=== PATIENT | female | born 1990 | race Two or more races ===

== ENCOUNTER 2024-07-12 00:52 | Inpatient (IN) | payer BC, OTHER ==
[2024-07-12] MEDS: ELECTROLYTE-148 SOLN 1,000 ML IV SCH (01:45)
[2024-07-12 02:32] LABS: BASO % 0.5 % (0-2.0); EOS % 0.3 % (0-4.5); HEMATOCRIT 37.1 % (32.4-45.2); HEMOGLOBIN 12.4 GM/dL (10.7-15.3); MCH 28.1 pg (25.7-33.7); MCHC 33.4 g/dl (32.0-36.0); MEAN CELL VOLUME 84.2 fl (80-96); MONO % 5.5 % (3.8-10.2); NEUT % 72.7 % (42.8-82.8); PLATELET COUNT 177 10^3/uL (134-434); RDW 14.4 % (11.6-15.6); WHITE BLOOD COUNT 7.6 K/mm3 (4.0-10.0)
[2024-07-12 02:34] LABS: INR 0.98 (0.83-1.09); PROTHROMBIN TIME (PATIENT) 11.1 SEC (9.7-13.0)
[2024-07-12 02:49] LABS: POTASSIUM 4.2 mmol/L (3.5-5.1)
[2024-07-12 02:50] LABS: CALCIUM 9.1 mg/dL (8.5-10.1)
[2024-07-12 02:51] LABS: BLOOD UREA NITROGEN 10.7 mg/dL (7-18)
[2024-07-12 03:00] LABS: CREATININE 0.4 mg/dL (0.55-1.3)
[2024-07-12] MEDS ORDERED: ELECTROLYTE-148 SOLN 1,000 ML IV SCH (03:30)
[2024-07-12] MEDS: CITRIC ACID/SODIUM CITRATE 30 ML UNIT-DOSE CUP PO ONE (04:00)
[2024-07-12 04:11] VITALS: BMI 20.4
[2024-07-12 04:35] LABS: URINE AMPHETAMINES NEGATIVE (NEGATIVE); URINE BARBITURATES NEGATIVE (NEGATIVE); URINE BENZODIAZEPINES NEGATIVE (NEGATIVE)
[2024-07-12 04:36] LABS: METHADONE, UR NEGATIVE (NEGATIVE); OPIATES, URI NEGATIVE (NEGATIVE); PHENCYCLIDINE,URINE NEGATIVE (NEGATIVE)
[2024-07-12 05:06] LABS: COCAINE, UR NEGATIVE (NEGATIVE)
[2024-07-12] MEDS ORDERED: ONDANSETRON 4 MG/2 ML VIAL IVPUSH PRN (05:06)
[2024-07-12] MEDS ORDERED: morphine SULFATE/PF 1 MG/2 ML (2cc Syringe - QUVA) ONE (05:09)
[2024-07-12] MEDS ORDERED: ceFAZolin SODIUM 1 GM VIAL ONE (05:19)
[2024-07-12] MEDS ORDERED: SODIUM CHLORIDE 0.9% P/F 10 ML VIAL IJ ONE (05:19)
[2024-07-12] MEDS ORDERED: PHENYLEPHRINE HCL 10 MG/1 ML SINGLE DOSE VIAL ONE (05:31)
[2024-07-12] MEDS ORDERED: ONDANSETRON 4 MG/2 ML VIAL ONE (05:31)
[2024-07-12] MEDS ORDERED: METOCLOPRAMIDE HCL INJECTION 10 MG/2 ML VIAL ONE (05:31)
[2024-07-12] MEDS ORDERED: OXYTOCIN 10 UNITS/ML VIAL ONE ×2 (05:31→05:47)
[2024-07-12] MEDS ORDERED: METHYLERGONOVINE MALEATE 0.2 MG/1 ML AMP IM PRN (05:54)
[2024-07-12] MEDS: OXYTOCIN 20 UNITS in 0.9% NS 20 UNIT/1,000 ML INFUS.BAG IV SCH (06:05)
[2024-07-12] MEDS ORDERED: MEPERIDINE HCL 25 MG/ML VIAL ONE (06:12)
[2024-07-12] MEDS: morphine SULFATE (PF) 1 MG/2 ML SYRINGE EP ONE (07:22)
[2024-07-12] MEDS: FERROUS SO4 325 MG TABLET (FP) PO SCH (08:00)
[2024-07-12] MEDS: PRENATAL VITAMINS W/ FOLIC ACID TABLET (FP) PO SCH (10:00)
[2024-07-12] MEDS: IBUPROFEN 800 MG/8 ML IJ IVPB PRN (11:32)
[2024-07-12] MEDS ORDERED: oxyCODONE HCL 5 MG TABLET PO PRN (17:54)
[2024-07-13] MEDS: SIMETHICONE 80 MG TAB.CHEW (FP) PO PRN (04:18)
[2024-07-13] MEDS: ACETAMINOPHEN 325 MG TABLET (FP) PO PRN (04:18)
[2024-07-13 07:00] LABS: BASO % 0.4 % (0-2.0); EOS % 0.4 % (0-4.5); HEMATOCRIT 35.2 % (32.4-45.2); HEMOGLOBIN 11.5 GM/dL (10.7-15.3); LYMPH % 11.4 % (8-40); MCH 27.8 pg (25.7-33.7); MCHC 32.8 g/dl (32.0-36.0); MEAN PLT VOLUME 8.5 fl (7.5-11.1); NEUT % 83.8 % (42.8-82.8); PLATELET COUNT 149 10^3/uL (134-434); RBC 4.14 M/mm3 (3.60-5.2); RDW 14.2 % (11.6-15.6); WHITE BLOOD COUNT 10.3 K/mm3 (4.0-10.0)
[2024-07-13] MEDS: IBUPROFEN 600 MG TABLET (FP) PO PRN ×2 (08:26→20:31)
[2024-07-13] MEDS: FLU VACCINE (FLULAVAL) PF 45 MCG/0.5 ML SYRINGE 2024-2025 IM ONE (20:03)
[2024-07-14] MEDS: BISACODYL 10 MG SUPP.RECT RC PRN (22:44)
[2024-07-14] MEDS: ACETAMINOPHEN 325 MG TABLET (FP) PO PRN (23:48)
[2024-07-15 08:37] LABS: BASO % 0.6 % (0-2.0); EOS % 1.9 % (0-4.5); HEMATOCRIT 33.5 % (32.4-45.2); LYMPH % 26.6 % (8-40); MCHC 32.9 g/dl (32.0-36.0); MEAN PLT VOLUME 8.1 fl (7.5-11.1); MONO % 5.3 % (3.8-10.2); NEUT % 65.6 % (42.8-82.8); PLATELET COUNT 208 10^3/uL (134-434); RBC 3.95 M/mm3 (3.60-5.2); RDW 13.9 % (11.6-15.6); WHITE BLOOD COUNT 6.9 K/mm3 (4.0-10.0)
[2024-07-15 10:31] VITALS: BP 114/80; PULSE 92; RESP 16; TEMP 98
== END 2024-07-15 14:45 | disposition home or self-care (01) | DRG 540 ==
LOC: JDEL 00:52 → JLDR 03:15 → J3W 08:25
PROVIDERS: ADMIT Obstetrics & Gynecology; ATTEND Obstetrics & Gynecology
PROC: 10D00Z1 Extraction of Products of Conception, Low, Open Approach (ICD-10-PCS; principal; 2024-07-12)
DX: O34.219 Maternal care for unspecified type scar from previous cesarean delivery (principal); Z3A.38 38 weeks gestation of pregnancy; Z37.0 Single live birth
CPT/HCPCS: 36415; 59409; 80048; 80307; 85025; 85610; 85730; 86780; 86850; 86900; 86901; 88307-TC; 90656; G0008